=== PATIENT | male | born 1970 | race American Indian/Alaskan Native ===

== ENCOUNTER 2019-07-27 08:54 | Outpatient (CLI) | payer OTHER ==
--- NOTE | 2019-07-27 12:45 | Nuclear Medicine Report ---
NUCLEAR MEDICINE BONE SCAN, WHOLE BODY INDICATION: MALIGNANT NEOPLASM OF PROSTATE. TECHNIQUE: 26.1 mCi of Tc-99m MDP were injected IV. Whole body images were obtained. COMPARISON: No relevant prior imaging study available. FINDINGS: Articular Structures: Mild uptake along the shoulders likely represents degenerative changes. No yonny tional significant abnormality. Skeletal Lesions: None. Soft Tissues: Normal. Kidneys: Normal. Additional Findings: None. IMPRESSION: No scintigraphic evidence of osseous metastatic disease. Signer Name: Brian Adorno MD Signed: 07/27/2019 12:40 PM Workstation Name: [id number]
== END 2019-07-27 08:55 | disposition home or self-care (01) ==
LOC: NM 08:54
PROVIDERS: ATTEND Urology
DX: C61 Malignant neoplasm of prostate (principal)
CPT/HCPCS: 78306; A9503

== ENCOUNTER 2019-09-02 01:38 | Emergency (ER) | payer OTHER ==
[2019-09-02 03:11] LABS: Basophils # (Auto) 0.1 K/mm3 (0.0-0.1); Basophils % (Auto) 0.5 % (0.0-1.8); Eosinophils # (Auto) 0.2 K/mm3 (0.0-0.4); Hematocrit 31.6 % (35.5-45.6); Hemoglobin 11.1 gm/dl (11.8-15.2); Lymphocytes # (Auto) 1.5 K/mm3 (1.2-5.4); Lymphocytes % (Auto) 14.3 % (13.4-35.0); Mean Corpuscular HGB Conc 35 % (32-34); Mean Corpuscular Volume 93 fl (84-94); Monocytes % (Auto) 9.8 % (0.0-7.3); Platelet Count 262 K/mm3 (140-440); Red Blood Count 3.41 M/mm3 (3.65-5.03); Red Cell Distribution Width 14.4 % (13.2-15.2)
[2019-09-02] MEDS ORDERED: ONDANSETRON 4 MG/2 ML INJ IV ONE (03:17)
[2019-09-02] MEDS ORDERED: SODIUM CHLORIDE 0.9% 1000 ML 1,000 ML IV ONE (03:17)
--- NOTE | 2019-09-02 03:19 | Emergency Department Report ---
HPI - General Chief Complaint: Weakness Time Seen by Provider: 09/02/19 03:05 - HPI HPI: Room 22 The patient is a 48-year-old male present with a chief complaint of weakness. The patient states he came to the emergency department because he is felt weak for 1 day. Patient admits to decreased energy and hot and cold flashes. Patient states she has had gas pain in the lower abdomen as he has had difficulty passing flatus. Patient admits to nausea but denies vomiting. Patient states he has had a small amount of diarrhea over the past 2 to 3 days. Patient admits to subjective fever. Patient has had recent robotic assisted laparoscopic prostatectomy 08/27/[address] Anderson. The patient states he was discharged from the hospital 2 days ago with a Hudson catheter in place. Patient states his urine has been dark yellow until today he noticed hematuria. ED Past Medical Hx - Past Medical History Previous Medical History?: Yes Hx of Cancer: Yes (Prostate) Hx Psychiatric Treatment: Yes (Panic Attacks) Hx Asthma: Yes (PRN INHALER) Hx HIV: Yes Additional medical history: Hyperactive thyroid. Anemia - Surgical History Past Surgical History?: Yes Additional Surgical History: Hemorrhoids, robotic assisted laparoscopic prostatectomy - Family History Family history: no significant - Social History Smoking Status: Never Smoker Substance Use Type: Alcohol (Rarely), Marijuana - Medications Home Medications: Home Medications Medication Instructions Recorded Confirmed Last Taken Type Abacavir/Dolutegravir/Lamivudi 1 each PO DAILY 08/17/19 08/27/19 08/27/19 04:00 History [Triumeq 600-50-300 mg Tablet] Albuterol Sulfate [Proventil Hfa] 2 puff IH PRN PRN 08/17/19 08/27/19 08/26/19 History Docusate Sodium [Colace] 100 mg PO BID #30 capsule 09/02/19 Unknown Rx Ondansetron [Zofran ODT TAB] 8 mg PO Q8HR #20 tab.rapdis 09/02/19 Unknown Rx ED Review of Systems ROS: Stated complaint: WEAK, NO ENERGY Other details as noted in HPI Constitutional: fever (Subjective) Eyes: denies: eye pain ENT: denies: throat pain Respiratory: no symptoms reported Endocrine: no symptoms reported Gastrointestinal: abdominal pain, nausea, diarrhea. denies: vomiting Genitourinary: hematuria Musculoskeletal: denies: back pain Neurological: denies: headache Physical Exam - Physical Exam Vital Signs: Vital Signs 09/02/19 01:41 Temperature 99.9 F H Pulse Rate 85 Respiratory 18 Rate Blood Pressure 145/73 O2 Sat by Pulse 100 Oximetry Physical Exam: GENERAL: The patient is well-developed well-nourished male lying on stretcher not appearing to be in acute distress. [] HEENT: Normocephalic. Atraumatic. Extraocular motions are intact. Patient has moist mucous membranes. NECK: Supple. Trachea midline CHEST/LUNGS: Clear to auscultation. There is no respiratory distress noted. HEART/CARDIOVASCULAR: Regular. There is no tachycardia. There is no gallop rub or murmur. ABDOMEN: Abdomen is soft, nontender. Patient has normal bowel sounds. There is no abdominal distention. SKIN: There is no rash. There is no edema. There is no diaphoresis. NEURO: The patient is awake, alert, and oriented. The patient is cooperative. The patient has no focal neurologic deficits. The patient has normal speech. Cranial nerves II through XII grossly intact, no drift MUSCULOSKELETAL: There is no evidence of acute injury. ED Course Vital Signs 09/02/19 01:41 Temperature 99.9 F H Pulse Rate 85 Respiratory 18 Rate Blood Pressure 145/73 O2 Sat by Pulse 100 Oximetry - Reevaluation(s) Reevaluation #1: 09/02/19 04:15 Patient states he feels better ED Medical Decision Making - Lab Data Result diagrams: 09/02/19 02:12 09/02/19 02:12 Laboratory Tests 09/02/19 09/02/19 09/02/19 02:12 02:12 03:22 WBC 10.5 RBC 3.41 L Hgb 11.1 L Hct 31.6 L MCV 93 MCH 33 H MCHC 35 H RDW 14.4 Plt Count 262 Lymph % (Auto) 14.3 [place] % (Auto) 9.8 H Eos % (Auto) 2.0 Baso % (Auto) 0.5 Lymph # 1.5 [place] # 1.0 H Eos # 0.2 Baso # 0.1 Seg Neutrophils % 73.4 H Seg Neutrophils # 7.7 Sodium 137 Potassium 3.6 Chloride 100.4 Carbon Dioxide 22 Anion Gap 18 BUN 18 Creatinine 1.1 Estimated GFR > 60 BUN/Creatinine Ratio 16 Glucose 108 H Calcium 9.6 Total Bilirubin 1.50 H Direct Bilirubin 0.3 H Indirect Bilirubin 1.2 AST 35 ALT 19 Alkaline Phosphatase 62 Total Creatine Kinase 365 H CK-MB (CK-2) 1.0 CK-MB (CK-2) Rel Index 0.2 Troponin T < 0.010 NT-Pro-B Natriuret Pep 107.3 Total Protein 7.2 Albumin 4.2 Albumin/Globulin Ratio 1.4 Lipase 146 H TSH Free T4 Urine Color Urine Turbidity Urine pH Ur Specific [place] Urine Protein Urine Glucose (UA) Urine Ketones Urine Blood Urine Nitrite Urine Bilirubin Urine Urobilinogen Ur Leukocyte Esterase Urine WBC (Auto) Urine RBC (Auto) Urine Bacteria (Auto) Urine Mucus 09/02/19 09/02/19 03:22 Unknown WBC RBC Hgb Hct MCV MCH MCHC RDW Plt Count Lymph % (Auto) [place] % (Auto) Eos % (Auto) Baso % (Auto) Lymph # [place] # Eos # Baso # Seg Neutrophils % Seg Neutrophils # Sodium Potassium Chloride Carbon Dioxide Anion Gap BUN Creatinine Estimated GFR BUN/Creatinine Ratio Glucose Calcium Total Bilirubin Direct Bilirubin Indirect Bilirubin AST ALT Alkaline Phosphatase Total Creatine Kinase CK-MB (CK-2) CK-MB (CK-2) Rel Index Troponin T NT-Pro-B Natriuret Pep Total Protein Albumin Albumin/Globulin Ratio Lipase TSH 0.948 Free T4 1.39 Urine Color Yellow Urine Turbidity Clear Urine pH 6.0 Ur Specific [place] 1.010 Urine Protein 30 mg/dl Urine Glucose (UA) 50 Urine Ketones Neg Urine Blood Lg Urine Nitrite Neg Urine Bilirubin Neg Urine Urobilinogen < 2.0 Ur Leukocyte Esterase Neg Urine WBC (Auto) 42.0 H Urine RBC (Auto) > 182.0 Urine Bacteria (Auto) 2+ Urine Mucus 3+ - EKG Data -: EKG Interpreted by [place] EKG shows normal: sinus rhythm Rate: normal - EKG Data When compared to previous EKG there are: previous EKG unavailable Interpretation: other (No ischemic changes seen) - Medical Decision Making Patient instructed to continue his Bactrim for his UTI. Patient notified of his elevated lipase but states he has no midepigastric pain. Patient given strong warnings for midepigastric pain or any other concerns. Patient states he is scheduled to see his urologist tomorrow - Differential Diagnosis UTI, symptomatic anemia, dehydration Critical care attestation.: If time is entered above; I have spent that time in minutes in the direct care of this critically ill patient, excluding procedure time. ED Disposition Clinical Impression: UTI (urinary tract infection), Nausea Disposition: DC-01 TO HOME OR SELFCARE Is pt being admited?: No Does the pt Need Aspirin: No Condition: Stable Instructions: Acute Nausea and Vomiting (ED) Additional Instructions: Return to the emergency department should you develop worsening symptoms, inability to tolerate food or liquids, high fever or any other concerns Prescriptions: Docusate Sodium [Colace] 100 mg PO BID #30 capsule Ondansetron [Zofran ODT TAB] 8 mg PO Q8HR #20 tab.abraham Referrals: MARY ANDERSON MD [Staff Physician] - 09/03/19 Time of Disposition: 05:21
[2019-09-02 03:22] LABS: BUN/Creatinine Ratio 16; Blood Urea Nitrogen 18 mg/dL (9-20); Calcium 9.6 mg/dL (8.4-10.2); Hemolysis Index 6
[2019-09-02] MEDS ORDERED: fentaNYL 100 MCG/2 ML INJ IV ONE (03:42)
[2019-09-02 04:02] LABS: Bacteria,Urine 2+ /HPF (Negative); Bilirubin,Urine NEG (Negative); Blood,Urine LG (Negative); Color,Urine Yellow (Yellow); Mucus,Urine 3+ /HPF; Urobilinogen,Urine < 2.0 mg/dL (<2.0)
[2019-09-02 04:05] LABS: RBC,Urine > 182.0 /HPF (0.0-6.0)
[2019-09-02 04:29] LABS: Alanine Aminotransferase 19 units/L (7-56); Albumin 4.2 g/dL (3.9-5); Bilirubin,Direct 0.3 mg/dL (0-0.2)
[2019-09-02 04:40] LABS: Free T4 (Free Thyroxine) 1.39 ng/dL (0.76-1.46)
[2019-09-02 07:37] VITALS: BP 138/62
== END 2019-09-02 06:00 | disposition home or self-care (01) ==
LOC: ED 01:38
DX: N39.0 Urinary tract infection, site not specified (principal); R11.0 Nausea; F41.0 Panic disorder [episodic paroxysmal anxiety]; D64.9 Anemia, unspecified; J45.909 Unspecified asthma, uncomplicated; F12.90 Cannabis use, unspecified, uncomplicated; Z21 Asymptomatic human immunodeficiency virus [HIV] infection status; Z98.890 Other specified postprocedural states; Z85.46 Personal history of malignant neoplasm of prostate; Z88.8 Allergy status to other drugs, medicaments and biological substances
CPT/HCPCS: 36415; 80048; 80076; 81001; 82550; 82553; 83690; 83880; 84439; 84443; 84484; 85025; 87086; 93005; 93010; 96374; 96375; 99283; J2405; J3010; J7030

== ENCOUNTER 2019-09-03 07:18 | Emergency (ER) | payer OTHER ==
[2019-09-03] MEDS ORDERED: SODIUM CHLORIDE 0.9% 1000 ML 1,000 ML IV ONE ×2 (07:52→09:45)
[2019-09-03 07:56] LABS: Basophils % (Auto) 0.3 % (0.0-1.8); Eosinophils # (Auto) 0.1 K/mm3 (0.0-0.4); Eosinophils % (Auto) 1.1 % (0.0-4.3); Hematocrit 31.8 % (35.5-45.6); Lymphocytes # (Auto) 1.8 K/mm3 (1.2-5.4); Lymphocytes % (Auto) 13.1 % (13.4-35.0); Mean Corpuscular HGB Conc 35 % (32-34); Mean Corpuscular Volume 93 fl (84-94); Monocytes # (Auto) 1.3 K/mm3 (0.0-0.8); Monocytes % (Auto) 9.8 % (0.0-7.3); Platelet Count 313 K/mm3 (140-440); Red Cell Distribution Width 14.9 % (13.2-15.2)
--- NOTE | 2019-09-03 08:17 | Emergency Department Report ---
HPI - General Chief Complaint: Weakness Time Seen by Provider: 09/03/19 07:50 - HPI HPI: 48-year-old -[place] male presents to the emergency department with complaint of some abdominal pain, generalized weakness, chills. The patient had a robotic prostatectomy on 08/[address] Anderson. Within 1 to 2 days the patient was found to have some bleeding inside of the pelvis, anemia with a hemoglobin of 5.9, and received 3 units of packed red blood cells. The patient was discharged on 08/30. The patient returned early yesterday morning for similar sy mptoms and/or complaints that he expresses today. He was evaluated at that time and found to have a urinary tract infection for which she was started on antibiotics. Unknown if the patient has been taking these medications. The prostatectomy was done secondary to prostate cancer. He also has a history of HIV, asthma, panic attacks, hyperthyroidism. He has not taken anything for symptoms prior to presentation today. Denies any fever. ED Past Medical Hx - Past Medical History Previous Medical History?: Yes Hx Hypertension: No Hx Psychiatric Treatment: Yes (Panic Attacks) Hx Asthma: Yes (PRN INHALER) Hx HIV: Yes Additional medical history: Hyperactive thyroid. Anemia - Surgical History Past Surgical History?: Yes Additional Surgical History: Hemorrhoids, robotic assisted laparoscopic prostatectomy - Social History Smoking Status: Never Smoker Substance Use Type: None - Medications Home Medications: Home Medications Medication Instructions Recorded Confirmed Last Taken Type Abacavir/Dolutegravir/Lamivudi 1 each PO DAILY 08/17/19 08/27/19 08/27/19 04:00 History [Triumeq 600-50-300 mg Tablet] Albuterol Sulfate [Proventil Hfa] 2 puff IH PRN PRN 08/17/19 08/27/19 08/26/19 History Docusate Sodium [Colace] 100 mg PO BID #30 capsule 09/02/19 Unknown Rx Ondansetron [Zofran ODT TAB] 8 mg PO Q8HR #20 tab.rapdis 09/02/19 Unknown Rx Magnesium Citrate [Citrate of 300 ml PO NOW #1 bottle 09/03/19 Unknown Rx Magnesia] ED Review of Systems ROS: Stated complaint: WEAK, DEHYDRATED, HAD SURGEY HERE LAST Other details as noted in HPI Comment: All other systems reviewed and negative Constitutional: chills. denies: fever Eyes: denies: eye pain, vision change ENT: denies: ear pain, throat pain Respiratory: denies: cough, wheezing Cardiovascular: denies: chest pain, palpitations Gastrointestinal: abdominal pain. denies: vomiting Genitourinary: hematuria. denies: dysuria Musculoskeletal: denies: back pain, arthralgia Skin: denies: rash, lesions Neurological: denies: headache, weakness Physical Exam - Physical Exam Vital Signs: Vital Signs 09/03/19 09/03/19 07:32 08:00 Temperature 97.8 F 99.2 F Pulse Rate 103 H 71 Respiratory 24 17 Rate Blood Pressure 133/67 Blood Pressure 140/79 [Left] O2 Sat by Pulse 100 100 Oximetry Physical Exam: GENERAL: The patient is well-developed well-nourished. HENT: Normocephalic. Atraumatic. Patient has moist mucous membranes. EYES: Extraocular motions are intact. NECK: Supple. Trachea is midline. CHEST/LUNGS: Clear to auscultation. There is no respiratory distress noted. HEART/CARDIOVASCULAR: Regular. There is no tachycardia. There is no murmur. ABDOMEN: Abdomen is soft. There is some lower abdominal tenderness to palpation. No guarding. Patient has normal bowel sounds. There is no abdom inal distention. SKIN: Skin is warm and dry. NEURO: The patient is awake, alert, and oriented. The patient is cooperative. The patient has no focal neurologic deficits. Normal speech. Cranial nerves II through XII grossly intact. MUSCULOSKELETAL: There is no tenderness or deformity. There is no evidence of acute injury. ED Course Vital Signs 09/03/19 09/03/19 07:32 08:00 Temperature 97.8 F 99.2 F Pulse Rate 103 H 71 Respiratory 24 17 Rate Blood Pressure 133/67 Blood Pressure 140/79 [Left] O2 Sat by Pulse 100 100 Oximetry ED Medical Decision Making - Lab Data Result diagrams: 09/03/19 07:34 09/03/19 07:34 - EKG Data -: EKG Interpreted by Me EKG shows normal: sinus rhythm, axis, intervals, QRS complexes, ST-T waves Rate: normal - EKG Data When compared to previous EKG there are: previous EKG unavailable Interpretation: normal EKG - Radiology Data Radiology results: report reviewed, image reviewed interpreted by me: Chest x-ray does not show any acute process. There are no pleural effusions, obvious pneumonia and there is no pneumothorax. Abdominal x-ray shows nonspecific nonobstructive bowel gas. CT ABDOMEN AND PELVIS WITH CONTRAST INDICATION: Generalized abdominal pain. History of prostate cancer, status post recent prostatectomy. COMPARISON: CT abdomen and pelvis with contrast from 08/30/2019. TECHNIQUE: Axial, coronal and sagittal CT imaging of the abdomen and pelvis was performed after injection of 100 cc Omnipaque [address] scans at this location are performed using CT dose reduction for ALARA by means of automated exposure control. FINDINGS: LOWER CHEST: No significant abnormality. LIVER: No significant abnormality. BILIARY: No significant abnormality. PANCREAS: No significant abnormality. SPLEEN: No significant abnormality. ADRENALS: No significant abnormality. KIDNEYS AND URETERS: No significant abnormality. GI TRACT: No significant abnormality of the stomach, small bowel or colon. The appendix is not seen. PERITONEUM: The previously seen large amount of blood in the pelvis has resolved. A small amount of free fluid remains along the abdomen and pelvis. The previously seen free air has improved. No fluid collection. LYMPH NODES: No significant adenopathy. VASCULATURE: No significant abnormality. URINARY BLADDER: Drained by a Hudson catheter. REPRODUCTIVE ORGANS: Prior prostatectomy. No significant abnormality. ADDITIONAL FINDINGS: None. SKELETAL SYSTEM: No significant abnormality. IMPRESSION: 1. Interval resolution of the previously seen large amount of blood in the pelvis. A small amount of free fluid remains along the abdomen and pelvis. 2. Interval improvement of the previously seen pneumoperitoneum. 3. No new acute abnormality of the abdomen or pelvis. - Medical Decision Making This patient presents to the emergency department with some continued abdominal pain and complains of some generalized weakness and/or fatigue. On examination the patient does not have any focal, motor or sensory deficits and his cranial nerves are intact. He is awake, alert, oriented, AAO x3. His abdomen is soft, nondistended and nontoxic in appearance. Patient's labs are mostly unremarkable except for his first lactic acid level of 2.2 which trended down into the normal range. He also has a urinalysis that shows urinary tract infection and hematuria in this patient who is status post prostatectomy and has a Hudson catheter in place. Patient was given some IV fluid resuscitation and a dose of Ancef. Vital signs have been stable throughout his ED course including being afebrile. He was reevaluated multiple times over multiple hours and says he is feeling improved. He has an appointment today at 3:10 PM with his urologist. The patient will be discharged home to follow-up with urology and was also given a referral for gastroenterology as the patient complained of feeling like some food gets stuck around the epigastrium. However the patient does not have any nausea or vomiting. The patient will return to the emergency department with any worsening of his symptoms or any acute distress. He was seen ambulatory in the emergency department prior to discharge and both appears and feels stable. - Differential Diagnosis Sepsis, UTI, malignancy, dehydration Critical Care Time: No Critical care attestation.: If time is entered above; I have spent that time in minutes in the direct care of this critically ill patient, excluding procedure time. ED Disposition Clinical Impression: S/P prostatectomy UTI (urinary tract infection) Qualifiers: Urinary tract infection type: acute cystitis Hematuria presence: with hematuria Qualified Code(s): N30.01 - Acute cystitis with hematuria Abdominal pain Qualifiers: Abdominal location: lower abdomen, unspecified Qualified Code(s): R10.30 - Lower abdominal pain, unspecified Hematuria Qualifiers: Hematuria type: gross Qualified Code(s): R31.0 - Gross hematuria Disposition: TO HOME OR SELFCARE Is pt being admited?: No Condition: Stable Instructions: Urinary Tract Infection in Men (ED), Acute Hematuria (ED), Abdominal Pain (ED) Additional Instructions: Please follow-up with your urologist today as previously scheduled. I have given you a referral for a local gastroenterology group to follow-up regarding your abdominal pains. Return to the emergency department with any worsening of your symptoms or any acute distress. Take the antibiotics as previously prescribed. Prescriptions: Magnesium Citrate [Citrate of Magnesia] 300 ml PO NOW #1 bottle Referrals: MARY ANDERSON MD [Staff Physician] - 09/03/19 [facility] [Provider Group] - 2-3 Days Time of Disposition: 13:36
[2019-09-03 08:35] LABS: Alanine Aminotransferase 18 units/L (7-56); Albumin 4.3 g/dL (3.9-5); BUN/Creatinine Ratio 15; Blood Urea Nitrogen 17 mg/dL (9-20); Calcium 9.6 mg/dL (8.4-10.2); Hemolysis Index 0
--- NOTE | 2019-09-03 09:01 | XRay Report ---
ABDOMEN 3 VIEW(S) INDICATION / CLINICAL INFORMATION: abd pain. COMPARISON: None available. FINDINGS: TUBES / LINES: None. BOWEL GAS PATTERN: No significant abnormality. FREE AIR / EXTRALUMINAL GAS: None seen. ADDITIONAL FINDINGS: Clear lungs with normal heart size. IMPRESSION: 1. No significant abnormality. Signer Name: Osmani Feliz MD Signed: 09/03/2019 8:56 AM Workstation Name: [id number]
[2019-09-03 09:17] LABS: Bacteria,Urine 2+ /HPF (Negative); Bilirubin,Urine NEG (Negative); Blood,Urine LG (Negative); Color,Urine Amber (Yellow); Mucus,Urine FEW /HPF; Sperm,Urine FEW /HPF (NP); Urobilinogen,Urine < 2.0 mg/dL (<2.0)
[2019-09-03 09:21] LABS: RBC,Urine > 182.0 /HPF (0.0-6.0)
[2019-09-03 09:22] LABS: INR 1.04 (0.87-1.13)
[2019-09-03] MEDS ORDERED: MORPHINE 4 MG/1 ML INJ IV ONE (09:28)
[2019-09-03] MEDS ORDERED: fentaNYL 100 MCG/2 ML INJ IV ONE (09:45)
--- NOTE | 2019-09-03 13:29 | Cat Scan Report ---
CT ABDOMEN AND PELVIS WITH CONTRAST INDICATION: Generalized abdominal pain. History of prostate cancer, status post recent prostatectomy. COMPARISON: CT abdomen and pelvis with contrast from 08/30/2019. TECHNIQUE: Axial, coronal and sagittal CT imaging of the abdomen and pelvis was performed after inje ction of 100 cc Omnipaque [address] scans at this location are performed using CT dose re duction for ALARA by means of automated exposure control. FINDINGS: LOWER CHEST: No significant abnormality. LIVER: No significant abnormality. BILIARY: No significant abnormality. PANCREAS: No significant abnormality. SPLEEN: No significant abnormality. ADRENALS: No significant abnormality. KIDNEYS AND URETERS: No significant abnormality. GI TRACT: No significant abnormality of the stomach, small bowel or colon. The appendix is not seen. PERITONEUM: The previously seen large amount of blood in the pelvis has resolved. A small amount of f ree fluid remains along the abdomen and pelvis. The previously seen free air has improved. No fluid c ollection. LYMPH NODES: No significant adenopathy. VASCULATURE: No significant abnormality. URINARY BLADDER: Drained by a Hudson catheter. REPRODUCTIVE ORGANS: Prior prostatectomy. No significant abnormality. ADDITIONAL FINDINGS: None. SKELETAL SYSTEM: No significant abnormality. IMPRESSION: 1. Interval resolution of the previously seen large amount of blood in the pelvis. A small amount of free fluid remains along the abdomen and pelvis. 2. Interval improvement of the previously seen pneumoperitoneum. 3. No new acute abnormality of the abdomen or pelvis. Signer Name: Brian Adorno MD Signed: 09/03/2019 1:24 PM Workstation Name: [id number]
[2019-09-03 14:06] VITALS: BP 125/54
== END 2019-09-03 14:07 | disposition home or self-care (01) ==
LOC: ED 07:18 → 3B-SURG 09-04 17:44 → UNDOADMIN 09-04 17:44
DX: N39.0 Urinary tract infection, site not specified (principal); R31.9 Hematuria, unspecified; J45.909 Unspecified asthma, uncomplicated; Z90.79 Acquired absence of other genital organ(s); Z98.890 Other specified postprocedural states; Z79.899 Other long term (current) drug therapy; Z88.8 Allergy status to other drugs, medicaments and biological substances
CPT/HCPCS: 74022; 74177; 80053; 81001; 82140; 83690; 84443; 84484; 85025; 85610; 86850; 86900; 86901; 87040; 87086; 93005; 93010; 96361; 96374; 96375; 99285; J0690; J3010; J7030; Q9967; 36415; J2270

== ENCOUNTER 2019-09-04 16:52 | Observation (INO) | payer OTHER ==
[2019-09-04] MEDS ORDERED: NALOXONE 0.4 MG/1 ML INJ IV PRN (17:34)
[2019-09-04] MEDS ORDERED: ONDANSETRON 4 MG/2 ML INJ IV PRN (17:34)
[2019-09-04] MEDS ORDERED: ACETAMINOPHEN 325 MG TAB PO PRN (17:34)
[2019-09-04] MEDS ORDERED: MORPHINE 2 MG/1 ML INJ IV PRN (17:34)
--- NOTE | 2019-09-04 17:44 | Event Note ---
Date: 09/04/19 (08-27-19)--ROBOTIC PROSTATECTOMY/ POST OP HEMATOMA--TRANSFUSION / PATH AUGUST 4+3- (80% OF PROSTATE)-- T3a - LEFT POSTERIOR - COPIED FOR PT---FILL FLOW GOOD--ALITTLE BLOODY / ECCHYMOSIS BETTER, SHANNON & LOC 09-04-19---- PT RETURNED TO OFFICE DIFFICULTY URINATING, ABD PAIN / CTAP TODAY AT HOSPITAL --NO ACUTE FIINDINGS- CYSTO [place] PLACED--PINK TINGED URINE + NAUSEA & VOMITING----ILEUS---ADMIT TO HOSPTIAL, NPO & HYDRATION (PAPER H&P ON CHART)
[2019-09-04] MEDS ORDERED: KETOROLAC 30 MG/1 ML INJ IV PRN (20:14)
[2019-09-04] MEDS: SODIUM CHLORIDE 0.45% 1000 ML 1,000 ML IV SCH (20:46)
[2019-09-04] MEDS: ceFAZolin/NS 1 GM/50 ML 1 GM/50 ML BAG IV SCH (22:23)
[2019-09-05] MEDS: ceFAZolin/NS 1 GM/50 ML 1 GM/50 ML BAG IV SCH ×3 (05:29→22:01)
[2019-09-05] MEDS: SODIUM CHLORIDE 0.45% 1000 ML 1,000 ML IV SCH (05:32)
[2019-09-05 08:39] LABS: Basophils % (Auto) 0.3 % (0.0-1.8); Eosinophils # (Auto) 0.1 K/mm3 (0.0-0.4); Eosinophils % (Auto) 0.6 % (0.0-4.3); Hemoglobin 10.1 gm/dl (11.8-15.2); Lymphocytes # (Auto) 1.1 K/mm3 (1.2-5.4); Lymphocytes % (Auto) 10.1 % (13.4-35.0); Mean Corpuscular HGB Conc 35 % (32-34); Mean Corpuscular Volume 94 fl (84-94); Monocytes # (Auto) 1.3 K/mm3 (0.0-0.8); Monocytes % (Auto) 11.9 % (0.0-7.3); Platelet Count 335 K/mm3 (140-440); Red Blood Count 3.09 M/mm3 (3.65-5.03); Red Cell Distribution Width 15.3 % (13.2-15.2)
--- NOTE | 2019-09-05 08:54 | XRay Report ---
ABDOMEN 2 VIEW(S) INDICATION / CLINICAL INFORMATION: ABD PAIN. COMPARISON: CT of abdomen and pelvis on 09/03/2019. FINDINGS: TUBES / LINES: None. BOWEL GAS PATTERN/EXTRALUMINAL GAS: No significant abnormality. No pneumatosis or secondary signs of free air. ADDITIONAL FINDINGS: Hudson catheter projecting over the urinary bladder. IMPRESSION: 1. No acute findings. No appreciable residual free air. Signer Name: Waqas Ling MD Signed: 09/05/2019 8:50 AM Workstation Name: [id number]
[2019-09-05 09:00] LABS: BUN/Creatinine Ratio 16; Blood Urea Nitrogen 18 mg/dL (9-20); Calcium 8.9 mg/dL (8.4-10.2); Hemolysis Index 0
[2019-09-05] MEDS ORDERED: traMADol 50 MG TAB PO PRN (09:00)
[2019-09-05] MEDS ORDERED: ENOXAPARIN 40 MG/0.4 ML INJ SUB-Q SCH (10:00)
[2019-09-05] MEDS ORDERED: LORazepam 2 MG/ML VIAL IV PRN (10:10)
[2019-09-05] MEDS: ONDANSETRON 4 MG/2 ML INJ IV PRN ×2 (10:43→20:55)
--- NOTE | 2019-09-05 17:32 | Progress Note ---
Subjective Date of service: 09/05/19 Interval history: (3-03-09)--ROBOTIC PROSTATECTOMY/ POST OP HEMATOMA--TRANSFUSION / PATH AUGUST 4+3- (80% OF PROSTATE)-- T3a - LEFT POSTERIOR - COPIED FOR PT---FILL FLOW GOOD--ALITTLE BLOODY / ECCHYMOSIS BETTER, SHANNON & LOC 09-04-19---- PT RETURNED TO OFFICE DIFFICULTY URINATING, ABD PAIN / CTAP TODAY AT HOSPITAL --NO ACUTE FIINDINGS- CYSTO [place] PLACED--PINK TINGED URINE feels better now- no vomiting ABD series --no acute findings abd soft labs ok clear liquids now will advance diet tomorrow if tolorating liquids home soon Objective - Constitutional Vitals: Vital Signs - 12hr 09/05/19 09/05/19 09/05/19 07:26 11:19 16:19 Temperature 98.8 F 99.2 F 99.2 F Pulse Rate 82 86 87 Respiratory 18 18 18 Rate Blood Pressure 111/55 129/73 132/78 O2 Sat by Pulse 99 99 100 Oximetry - Labs CBC & Chem 7: 09/05/19 07:29 09/05/19 07:29 Labs: Abnormal lab results 09/05/19 09/05/19 Range/Units 07:29 07:29 RBC 3.09 L (3.65-5.03) M/mm3 Hgb 10.1 L (11.8-15.2) gm/dl Hct 29.0 L (35.5-45.6) % MCH 33 H (28-32) pg MCHC 35 H (32-34) % RDW 15.3 H (13.2-15.2) % Lymph % (Auto) 10.1 L (13.4-35.0) % [place] % (Auto) 11.9 H (0.0-7.3) % Lymph # 1.1 L (1.2-5.4) K/mm3 [place] # 1.3 H (0.0-0.8) K/mm3 Seg Neutrophils % 77.1 H (40.0-70.0) % Seg Neutrophils # 8.2 H (1.8-7.7) K/mm3 Carbon Dioxide 17 L (22-30) mmol/L Medications & Allergies - Medications Allergies/Adverse Reactions: Allergies typhoid vaccine Allergy (Verified 08/17/19 11:51) Vomiting , MUSCLE SPAMS Home Medications: Home Medications Medication Instructions Recorded Confirmed Last Taken Type Abacavir/Dolutegravir/Lamivudi 1 each PO DAILY 08/17/19 08/27/19 08/27/19 04:00 History [Triumeq 600-50-300 mg Tablet] Albuterol Sulfate [Proventil Hfa] 2 puff IH PRN PRN 08/17/19 08/27/19 08/26/19 History Docusate Sodium [Colace] 100 mg PO BID #30 capsule 09/02/19 Unknown Rx Ondansetron [Zofran ODT TAB] 8 mg PO Q8HR #20 tab.rapdis 09/02/19 Unknown Rx Magnesium Citrate [Citrate of 300 ml PO NOW #1 bottle 09/03/19 Unknown Rx Magnesia] Active Medications: Generic Name Dose Route Start Last Admin Trade Name Freq PRN Reason Stop Dose Admin Acetaminophen 650 mg 09/04/19 17:34 Tylenol PO Q4H PRN Pain MILD(1-3)/Fever >100.5/MARIA Enoxaparin Sodium 40 mg 09/05/19 10:00 09/05/19 10:42 Enoxaparin SUB-Q 40 mg QDAY SHIVANI Administration Sodium Chloride 1,000 mls @ 125 mls/hr 09/04/19 18:00 09/05/19 05:32 Nacl 0.45% 1000 Ml IV 125 mls/hr DIRECT SHIVANI Administration Cefazolin Sodium 1 gm in 50 mls @ 100 mls/hr 09/04/19 22:00 09/05/19 05:29 Ancef/Ns 1 Gm/50 Ml IV 100 mls/hr Q8H SHIVANI Administration Protocol Ketorolac Tromethamine 30 mg 09/04/19 20:14 09/04/19 20:45 Toradol IV 09/09/19 20:13 30 mg Q6H PRN Administration Pain, Moderate (4-6) Lorazepam 1 mg 09/05/19 10:10 Ativan IV Q4H PRN Agitation Morphine Sulfate 2 mg 09/04/19 17:34 Morphine IV Q4H PRN Pain, Moderate (4-6) Naloxone HCl 0.1 mg 09/04/19 17:34 Naloxone IV Q2MIN PRN Res Rate </= 8 or 02 SAT < 92% Ondansetron HCl 4 mg 09/05/19 08:53 09/05/19 10:43 Zofran IV 4 mg Q6H PRN Administration Nausea And Vomiting Sodium Chloride 10 ml 09/04/19 22:00 09/04/19 22:34 Sodium Chloride Flush Syringe 10 Ml IV 10 ml BID SHIVANI Administration Sodium Chloride 10 ml 09/04/19 17:34 Sodium Chloride Flush Syringe 10 Ml IV PRN PRN LINE FLUSH Tramadol HCl 50 mg 09/05/19 09:00 Ultram PO Q4H PRN Pain, Moderate (4-6)
[2019-09-06] MEDS: SODIUM CHLORIDE 0.45% 1000 ML 1,000 ML IV SCH ×2 (02:09→11:45)
[2019-09-06] MEDS: ceFAZolin/NS 1 GM/50 ML 1 GM/50 ML BAG IV SCH ×2 (05:17→16:17)
--- NOTE | 2019-09-06 12:48 | Progress Note ---
Subjective Date of service: 09/06/19 Interval history: (3)--ROBOTIC PROSTATECTOMY/ POST OP HEMATOMA--TRANSFUSION / PATH AUGUST 4+3- (80% OF PROSTATE)-- T3a - LEFT POSTERIOR - COPIED FOR PT---FILL FLOW GOOD--ALITTLE BLOODY / ECCHYMOSIS BETTER, SHANNON & LOC 09-04-19---- PT RETURNED TO OFFICE DIFFICULTY URINATING, ABD PAIN / CTAP TODAY AT HOSPITAL --NO ACUTE FIINDINGS- CYSTO BECKWITH PLACED--PINK TINGED URINE feels better now on clear liquids ABD series --no acute findings 09-05-19 abd soft labs ok advance to full liquids home with beckwith later today Objective - Constitutional Vitals: Vital Signs - 12hr 09/06/19 09/06/19 09/06/19 04:26 07:15 11:23 Temperature 98.9 F 98.8 F 98.8 F Pulse Rate 89 101 H 89 Respiratory 17 18 18 Rate Blood Pressure 115/63 123/71 114/76 O2 Sat by Pulse 99 99 100 Oximetry - Labs CBC & Chem 7: 09/05/19 07:29 09/05/19 07:29 Medications & Allergies - Medications Allergies/Adverse Reactions: Allergies typhoid vaccine Allergy (Verified 08/17/19 11:51) Vomiting , MUSCLE SPAMS Home Medications: Home Medications Medication Instructions Recorded Confirmed Last Taken Type Abacavir/Dolutegravir/Lamivudi 1 each PO DAILY 08/17/19 09/05/19 09/04/19 History [Triumeq 600-50-300 mg Tablet] Albuterol Sulfate [Proventil Hfa] 2 puff IH PRN PRN 08/17/19 09/05/19 09/02/19 History Docusate Sodium [Colace] 100 mg PO BID #30 capsule 09/02/19 09/05/19 09/04/19 Rx Ondansetron [Zofran ODT TAB] 8 mg PO Q8HR #20 tab.rapdis 09/02/19 09/05/19 09/05/19 Rx Magnesium Citrate [Citrate of 300 ml PO NOW #1 bottle 09/03/19 09/05/19 09/03/19 Rx Magnesia] Active Medications: Generic Name Dose Route Start Last Admin Trade Name Freq PRN Reason Stop Dose Admin Acetaminophen 650 mg 09/04/19 17:34 Tylenol PO Q4H PRN Pain MILD(1-3)/Fever >100.5/MARIA Enoxaparin Sodium 40 mg 09/05/19 10:00 09/05/19 10:42 Enoxaparin SUB-Q 40 mg QDAY SHIVANI Administration Sodium Chloride 1,000 mls @ 125 mls/hr 09/04/19 18:00 09/06/19 02:09 Nacl 0.45% 1000 Ml IV 125 mls/hr DIRECT SHIVANI Administration Cefazolin Sodium 1 gm in 50 mls @ 100 mls/hr 09/04/19 22:00 09/06/19 07:05 Ancef/Ns 1 Gm/50 Ml IV Infused Q8H SHIVANI Infusion Protocol Ketorolac Tromethamine 30 mg 09/04/19 20:14 09/04/19 20:45 Toradol IV 09/09/19 20:13 30 mg Q6H PRN Administration Pain, Moderate (4-6) Lorazepam 1 mg 09/05/19 10:10 Ativan IV Q4H PRN Agitation Morphine Sulfate 2 mg 09/04/19 17:34 Morphine IV Q4H PRN Pain, Moderate (4-6) Naloxone HCl 0.1 mg 09/04/19 17:34 Naloxone IV Q2MIN PRN Res Rate </= 8 or 02 SAT < 92% Ondansetron HCl 4 mg 09/05/19 08:53 09/05/19 20:55 Zofran IV 4 mg Q6H PRN Administration Nausea And Vomiting Sodium Chloride 10 ml 09/04/19 22:00 09/05/19 21:01 Sodium Chloride Flush Syringe 10 Ml IV 10 ml BID SHIVANI Administration Sodium Chloride 10 ml 09/04/19 17:34 Sodium Chloride Flush Syringe 10 Ml IV PRN PRN LINE FLUSH Tramadol HCl 50 mg 09/05/19 09:00 Ultram PO Q4H PRN Pain, Moderate (4-6)
--- NOTE | 2019-09-06 16:15 | Consultation ---
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 Patient is status post prostatectomy on August 26 for prostate cancer. On August 31, at home, he had an episode of epigastric pressure-like discomfort. On the , he developed nausea vomiting which then persisted intermittently. He was seen in the ER twice. He was ultimately admitted for evaluation on September [address] Anderson. Here, he received IV fluids and is feeling much better. He currently has no more epigastric pain nausea or vomiting and is tolerating a diet well. He states that his pain previously was an epigastric pressure-like pain that was constant for 2 or 3 days. He denies prior similar symptoms. He has no history of heartburn or peptic ulcer disease. His prostatectomy was complicated by hematoma. Past History Past Medical History: HIV/AIDS (undetectable viral load) Medications and Allergies Allergies Allergy/AdvReac Type Severity Reaction Status Date / Time typhoid vaccine Allergy Vomiting , Verified 08/17/19 11:51 MUSCLE SPAMS Home Medications Medication Instructions Recorded Confirmed Last Taken Type Abacavir/Dolutegravir/Lamivudi 1 each PO DAILY 08/17/19 09/05/19 09/04/19 History [Triumeq 600-50-300 mg Tablet] Albuterol Sulfate [Proventil Hfa] 2 puff IH PRN PRN 08/17/19 09/05/19 09/02/19 History Docusate Sodium [Colace] 100 mg PO BID #30 capsule 09/02/19 09/05/19 09/04/19 Rx Ondansetron [Zofran ODT TAB] 8 mg PO Q8HR #20 tab.rapdis 09/02/19 09/05/19 09/05/19 Rx Magnesium Citrate [Citrate of 300 ml PO NOW #1 bottle 09/03/19 09/05/19 09/03/19 Rx Magnesia] Active Meds: Active Medications Acetaminophen (Tylenol) 650 mg PO Q4H PRN PRN Reason: Pain MILD(1-3)/Fever >100.5/MARIA Enoxaparin Sodium (Enoxaparin) 40 mg SUB-Q QDAY SHIVANI Last Admin: 09/05/19 10:42 Dose: 40 mg Documented by: Sodium Chloride (Nacl 0.45% 1000 Ml) 1,000 mls @ 125 mls/hr IV DIRECT [facility] Last Admin: 09/06/19 02:09 Dose: 125 mls/hr Documented by: Cefazolin Sodium (Ancef/Ns 1 Gm/50 Ml) 1 gm in 50 mls @ 100 mls/hr IV Q8H [facility]; Protocol Last Infusion: 09/06/19 07:05 Dose: Infused Documented by: Ketorolac Tromethamine (Toradol) 30 mg IV Q6H PRN PRN Reason: Pain, Moderate (4-6) Stop: 09/09/19 20:13 Last Admin: 09/04/19 20:45 Dose: 30 mg Documented by: Lorazepam (Ativan) 1 mg IV Q4H PRN PRN Reason: Agitation Morphine Sulfate (Morphine) 2 mg IV Q4H PRN PRN Reason: Pain, Moderate (4-6) Naloxone HCl (Naloxone) 0.1 mg IV Q2MIN PRN PRN Reason: Res Rate </= 8 or 02 SAT < 92% Ondansetron HCl (Zofran) 4 mg IV Q6H PRN PRN Reason: Nausea And Vomiting Last Admin: 09/05/19 20:55 Dose: 4 mg Documented by: Sodium Chloride (Sodium Chloride Flush Syringe 10 Ml) 10 ml IV BID [facility] Last Admin: 09/05/19 21:01 Dose: 10 ml Documented by: Sodium Chloride (Sodium Chloride Flush Syringe 10 Ml) 10 ml IV PRN PRN PRN Reason: LINE FLUSH Tramadol HCl (Ultram) 50 mg PO Q4H PRN PRN Reason: Pain, Moderate (4-6) Review of Systems All systems: negative (as noted) Exam - Constitutional Vitals: Temp Pulse Resp BP Pulse Ox 98.8 F 89 18 114/76 100 09/06/19 11:23 09/06/19 11:23 09/06/19 11:23 09/06/19 11:23 09/06/19 11:23 General appearance: Present: no acute distress - EENT Eyes: Present: PERRL, EOM intact ENT: hearing intact - Respiratory Respiratory effort: normal Respiratory: bilateral: CTA - Cardiovascular Rhythm: regular Heart Sounds: Present: S1 & S2 - Extremities Extremities: No edema - Abdominal General gastrointestinal: Present: soft, non-tender, normal bowel sounds Results - Labs CBC & Chem 7: 09/05/19 07:29 09/05/19 07:29 - Imaging and Cardiology CT scan - abdomen: report reviewed Assessment and Plan 1. Epigastric pain, nausea, vomiting -symptoms resolved as of now. Etiology u nclear. The symptoms were transient and occurred postoperatively. Liver enzymes were normal and only on one occasion was the lipase mildly elevated. Given resolution, at this point, I do not contemplate any further GI evaluation. If he has recurrent symptoms, I would initiate proton pump inhibitors and check a gallbladder ultrasound. Otherwise, advance diet and if he does well, there is no contraindication to discharging him from a GI standpoint.
[2019-09-06 16:41] VITALS: BP 128/76
--- NOTE | 2019-09-06 17:23 | Discharge Summary ---
Providers - Providers Date of Admission: 09/04/19 17:34 Date of discharge: 09/06/19 Attending physician: MARY AREVALO Primary care physician: MARY AREVALO Hospitalization Pertinent studies: CTAP---NO ACUTE FINDINGS Hospital course: (08-27-19)--ROBOTIC PROSTATECTOMY/ POST OP HEMATOMA--TRANSFUSION / PATH AUGUST 4+3- (80% OF PROSTATE)-- T3a - LEFT POSTERIOR - COPIED FOR PT---FILL FLOW GOOD--ALITTLE BLOODY / ECCHYMOSIS BETTER, [facility]GEL & LOC 09-04-19---- PT RETURNED TO OFFICE DIFFICULTY URINATING, ABD PAIN / feels better now on clear liquids ABD series --no acute findings 09-05-19 CTAP NO ACUTE FINDINGS abd soft labs ok advance to full liquids PT HAS HISTORY OF ANXIETY----NOT TREATED---F/U OUT PT home with beckwith TODAY ATIVAN & CIPRO ON CHART Disposition: TO HOME OR SELFCARE - Discharge Diagnoses (1) Abdominal pain Status: Acute Qualifiers: Abdominal location: lower abdomen, unspecified Qualified Code(s): R10.30 - Lower abdominal pain, unspecified Core Measure Documentation - Palliative Care Palliative Care/ Comfort Measures: Not Applicable - Core Measures Any of the following diagnoses?: none - VTE Discharge Requirements Deep Vein Thrombosis/Pulmonary Embolism Present on Admission: No Has pt received <5 days of overlap therapy or INR<2.0: No Anticoagulant overlap therapy prescribed at discharge: No Contraindication No Overlap Therapy order at DC: Medical Contraindication - Acute ME Discharge Requirements Aspirin at discharge: No Reason for no aspirin on DC: Surgical contraindication JOAQUÍN/ARB for LVSD if EF <40%: Not Applicable Reason for no JOAQUÍN/ARB: Medical contraindication Beta vidal at discharge: No Reason for no beta vidal on DC: Medical contraindication Statin for LDL = or >100 mg/dl on DC: Not Applicable Reason for no statin on DC: Surgical contraindication - Heart Failure Discharge Requirements JOAQUÍN/ARB for LVSD if EF <40%: Not Applicable Reason for no JOAQUÍN/ARB: Medical contraindication Reason for no beta vidal on DC: Patient refusal - Stroke Discharge Requirements Statin for LDL = or >70 mg/dl on DC: Not Applicable Reason for no statin on DC: Medical Contraindication Anticoag for atrial fib/atrial flutter: Not Applicable Reason for no anticoag for AF/F on DC: Medical Contraindication Antithrombotic for ischemic stroke: No Reason for no antithrombotic on DC: Medical Contraindication Exam - Constitutional Vitals: Temp Pulse Resp BP Pulse Ox 98.3 F 92 H 20 128/76 100 09/06/19 16:39 09/06/19 16:39 09/06/19 16:39 09/06/19 16:39 09/06/19 16:39 General appearance: Present: no acute distress, well-nourished - EENT Eyes: Present: PERRL ENT: hearing intact, clear oral mucosa - Neck Neck: Present: supple, normal ROM - Respiratory Respiratory effort: normal Respiratory: bilateral: CTA - Cardiovascular Heart Sounds: Present: S1 & S2. Absent: rub, click - Extremities Extremities: pulses symmetrical, No edema Peripheral Pulses: within normal limits - Abdominal General gastrointestinal: Present: soft, non-tender, non-distended, normal bowel sounds Male genitourinary: Present: normal - Integumentary Integumentary: Present: clear, warm, dry - Musculoskeletal Musculoskeletal: gait normal, strength equal bilaterally - Psychiatric Psychiatric: appropriate mood/affect, intact judgment & insight - Neurologic Neurologic: CNII-XII intact, moves all extremities Plan Activity: no restrictions, advance as tolerated, other (10 LB WT RESTRICTION) Diet: advance as tolerated Wound: open to air Follow up with: MARY AREVALO MD [Primary Care Provider] - 7 Days
== END 2019-09-06 20:35 | disposition home or self-care (01) ==
LOC: UNDOADMOB 16:52 → 3A 16:52 → 3B-SURG 17:34
PROVIDERS: ADMIT Urology; ATTEND Urology
DX: R31.9 Hematuria, unspecified (principal); R10.9 Unspecified abdominal pain; R11.2 Nausea with vomiting, unspecified; Z90.79 Acquired absence of other genital organ(s)
CPT/HCPCS: 36415; 74019; 80048; 85025; 87086; 96361; 96365; 96366; 96372; 96375; 96376; G0378; G0379; J0690; J1650; J1885; J2060; J2405; J7030; J2270